=== PATIENT | male | born 1980 | race Two or more races ===

== ENCOUNTER 2023-02-18 04:02 | Emergency (ER) | payer SELFPAY ==
[~2023-02-18] VITALS: Ht 188 cm; Wt 93.7 kg
[2023-02-18] MEDS ORDERED: BENZOCAINE (DENTAL) 20 % SPRAY 60ML MT ONE (04:45)
[2023-02-18] MEDS ORDERED: AMOX875T4 PO (04:58)
[2023-02-18] MEDS ORDERED: IBUP-1456 PO (04:58)
[2023-02-18] MEDS ORDERED: KETOROLAC TROMETH 60MG/2ML VIAL IM ONE (05:00)
[2023-02-18] MEDS ORDERED: cefTRIAXone SOD 1,000 MG VL IM ONE (05:00)
[2023-02-18 05:37] VITALS: BP 132/76; PULSE 78; RESP 20; TEMP 98.6; O2SAT 99
== END 2023-02-18 05:37 | disposition home or self-care (01) ==
LOC: EDBD 04:02 → ER 04:02
DX: S02.5XXA Fracture of tooth (traumatic), initial encounter for closed fracture (principal); K04.7 Periapical abscess without sinus; X58.XXXA Exposure to other specified factors, initial encounter; Y93.89 Activity, other specified; Y92.89 Other specified places as the place of occurrence of the external cause; Y99.8 Other external cause status; F17.210 Nicotine dependence, cigarettes, uncomplicated; F12.10 Cannabis abuse, uncomplicated
CPT/HCPCS: 96372; 99284; J0696; J1885